=== PATIENT | female | born 1970 | race Caucasian/White ===

== ENCOUNTER 2016-03-13 13:41 | Emergency (ER) | payer OTHER ==
[2016-03-13 14:57] VITALS: BP 122/84
--- NOTE | 2016-03-13 15:21 | UC ---
Respiratory Complaint HPI - HPI Summary HPI Summary: Here on 03/06 for cough. Had just finished course of Z-pack for cough, didn't help. Also had complaint of sores on face, concerned about MRSA. She was treated with Bactrim DS and Bactroban. Wound culture was negative. States the cough is still severe, wheezing from time to time, coughs all night, bring up yellow phlegm. Heavy smoker in past, now down to 3 a day. Also says facial rash is still there, though improved on the treatment. Also has this itchy, scabby rash on legs. 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 She states fevers at home to 102/103, said same thing last visit though temps were normal here. Also wants "urine checked", has inc frequency - History of Current Complaint Chief Complaint: UCGeneralIllness Stated Complaint: RESPIRATORY COMPLAINT Time Seen by Provider: 03/13/16 14:58 Hx Obtained From: Patient Hx Last Menstrual Period: irregular ?: No Onset/Duration: Gradual Onset, Lasting Weeks - 2.5 Timing: Constant Severity Initially: Mild Severity Currently: Moderate Character: Sputum Description: - yellow/green Aggravating Factors: Recumbent Position Alleviating Factors: Bronchodilator Associated Signs And Symptoms: Positive: Dyspnea - off and on with wheezing, Chills, Wheezing, URI, Nasal Congestion, Hoarseness, Sinus Discomfort. Negative : Hemoptysis, Dizziness - Risk Factors Pulmonary Embolism Risk Factors: Smoking Cardiac Risk Factors: Smoking Pseudomonas Risk Factors: Negative Tuberculosis Risk Factors: Smoking - Allergies/Home Medications Allergies/Adverse Reactions: Allergies Allergy/AdvReac Type Severity Reaction Status Date / Time Morphine and Related Allergy Severe hives, Verified 03/13/16 14:45 heart races Hydrocodone Allergy Intermediate Hives Verified 03/13/16 14:45 Propoxyphene [From Darvon] Allergy Intermediate hives, Verified 03/13/16 14:45 heart races Acetaminophen [From Tylenol] Allergy AFFECTS Verified 03/13/16 14:45 THE LIVER Bupropion [From Wellbutrin] Allergy heart Verified 03/13/16 14:45 races, vomiting Oxycodone [From Percocet] Allergy AFFECTS Verified 03/13/16 14:45 THE LIVER ENVIRONMENTAL/HAYFEVER Allergy SNEEZE, Uncoded 03/13/16 14:45 RUNNY NOSE, ITCHY EYES oral contraceptive AdvReac Intermediate Vomiting Uncoded 03/13/16 14:45 PMH/Surg Hx/FS Hx/Imm Hx Endocrine History Of: Denies: Diabetes, Thyroid Disease Cardiovascular History Of: Reports: Cardiac Disorders - [place] 04/06/11 Denies: Hypertension - HYPOTENSIVE HX, Pacemaker/ICD Respiratory History Of: Reports: Asthma - RESCUE INHALER Denies: COPD GI/ History Of: Denies: Ulcer Neurological History Of: Reports: Seizures - 3-4 YEARS AGO - UNKNOWN TYPE, Migraine - 2-3 TIMES PER WEEK Psychological History Of: Reports: Anxiety, Depression - Surgical History Surgical History: Yes Surgery Procedure, Year, and Place: [place] [facility] [place] ADENOIDECTOMY,. B[place], [place] [facility] [place] surgeries RODS IN LEGS AND ANKLES REMOVED,. BONE IMPLANT LEFT LEG, [place]. NOSE SURGERY,. LEFT ANKLE SURGERY X 2,. BILATER[place] [facility] [place] LEFT WRIST CARPAL TUNNEL [place]LEASE[place] [facility] [place] R carpal tunnel- 2015 - Family History Known Family History: Positive: Respiratory Disease - pneumonia in her son - Social History Occupation: Employed Part-time Alcohol Use: None Substance Use Type: Prescribed Smoking Status (MU): Heavy Every Day Tobacco Smoker Type: Cigarettes Amount Used/How Often: 1/2 PPD FOR 30+ YEARS Length of Time of Smoking/Using Tobacco: 33 Years Have You Smoked in the Last Year: Yes Household Exposure Type: Cigarettes - Immunization History Most Recent Influenza Vaccination: Not the Season Review of Systems Constitutional: Negative Skin: Rash - facial and leg Eyes: Negative ENT: Nasal Discharge, Other - sinus pressure Respiratory: Shortness Of Breath Cardiovascular: Negative Gastrointestinal: Negative Genitourinary: Frequency, Urgency Motor: Negative Neurovascular: Negative Musculoskeletal: Myalgia Neurological: Headache Psychological: Negative All Other Systems Reviewed And Are Negative: Yes Physical Exam Triage Information Reviewed: Yes Appearance: Well-Appearing, No Pain Distress, Well-Nourished, Thin Vital Signs: Initial Vital Signs Temp 99.8 F 03/13/16 14:49 Pulse 78 03/13/16 14:49 Resp 20 03/13/16 14:49 BP 122/84 03/13/16 14:49 Pulse Ox 98 03/13/16 14:49 Vital Signs Reviewed: Yes Eye Exam: Normal Eyes: Positive: Conjunctiva Clear ENT: Positive: Hearing grossly normal, Pharynx normal, TMs normal, Muffled/ hoarse voice - hoarse, consistent with heavy smoking. Negative: Tonsillar swelling, Tonsillar exudate, Trismus Neck exam: Normal Neck: Positive: Supple Respiratory: Positive: Lungs clear, Normal breath sounds, No respiratory distress, No accessory muscle use - lungs CTA; harsh, dry, wheezy cough with deep breaths Cardiovascular Exam: Normal Musculoskeletal Exam: Normal Neurological Exam: Normal Neurological: Positive: Alert, Muscle Tone Normal Psychological Exam: Normal Skin: Positive: rashes - rash on face and legs, just appears like excoriated scabs UC Diagnostic Evaluation - Laboratory O2 Sat by Pulse Oximetry: 98 Diagnostic Studies Comment: U/A unremarkable. CXR no pneumonia Respiratory Course/Dx - Differential Dx/Diagnosis Differential Diagnosis/HQI/PQRI: Asthma, Bronchitis, Lower Resp Infection, SARS Provider Diagnoses: URI Discharge - Discharge Plan Condition: Stable Disposition: HOME Prescriptions: Loratadine [Claritin] 10 mg PO DAILY PRN #30 cap PRN Reason: congestion, allergies predniSONE TAB* [Deltasone TAB*] 40 mg PO DAILY #10 tab Patient Education Materials: Upper Respiratory Infection (ED) Forms: *Work Release Referrals: Sumanth Herr MD [Primary Care Provider] -
--- NOTE | 2016-03-13 15:47 | RAD ---
INDICATION: Fever and cough. COMPARISON: Comparison is made with a prior study from March 14 2010. TECHNIQUE: Dual-energy PA and lateral views of the chest were obtained. FINDINGS: The heart is within normal limits in size. Mediastinal and hilar contours appear within normal limits. The lungs are clear. No pleural effusion is present. IMPRESSION: NO EVIDENCE FOR ACTIVE CARDIOPULMONARY DISEASE.
== END 2016-03-13 15:56 | disposition home or self-care (01) ==
LOC: UCCORT 13:41
DX: J06.9 Acute upper respiratory infection, unspecified (principal); Z88.6 Allergy status to analgesic agent; Z88.5 Allergy status to narcotic agent; Z88.8 Allergy status to other drugs, medicaments and biological substances; I25.2 Old myocardial infarction; Z95.810 Presence of automatic (implantable) cardiac defibrillator; J45.909 Unspecified asthma, uncomplicated; F17.210 Nicotine dependence, cigarettes, uncomplicated
CPT/HCPCS: 71020; 99212; G0463

== ENCOUNTER 2016-03-18 13:21 | Emergency (ER) | payer OTHER ==
[2016-03-18 13:35] VITALS: BP 123/65
--- NOTE | 2016-03-18 13:50 | UC ---
Respiratory Complaint HPI - HPI Summary HPI Summary: cough, chest congestion x 2 weeks is on Bactrim ds and prednisone , no getting better, diarrhea x 2 days no fever, no chills, no sob - History of Current Complaint Chief Complaint: UCRespiratory Stated Complaint: RE CK UPPER RESPIRATORY Time Seen by Provider: 03/18/16 13:23 Hx Obtained From: Patient Hx Last Menstrual Period: irregular ?: No Onset/Duration: Gradual Onset, Lasting Weeks - 2, Still Present Severity Initially: Moderate Severity Currently: Moderate Character: Cough: Nonproductive Aggravating Factors: Exertion, Deep Breaths Alleviating Factors: Nothing Associated Signs And Symptoms: Positive: Wheezing, URI, Nasal Congestion. Negative: Dyspnea, Fever, Chills, Calf Pain, Calf Swelling - Allergies/Home Medications Allergies/Adverse Reactions: Allergies Allergy/AdvReac Type Severity Reaction Status Date / Time Morphine and Related Allergy Severe hives, Verified 03/18/16 13:28 heart races Hydrocodone Allergy Intermediate Hives Verified 03/18/16 13:28 Propoxyphene [From Darvon] Allergy Intermediate hives, Verified 03/18/16 13:28 heart races Acetaminophen [From Tylenol] Allergy AFFECTS Verified 03/18/16 13:28 THE LIVER Bupropion [From Wellbutrin] Allergy heart Verified 03/18/16 13:28 races, vomiting Oxycodone [From Percocet] Allergy AFFECTS Verified 03/18/16 13:28 THE LIVER ENVIRONMENTAL/HAYFEVER Allergy SNEEZE, Uncoded 03/18/16 13:28 RUNNY NOSE, ITCHY EYES oral contraceptive AdvReac Intermediate Vomiting Uncoded 03/18/16 13:28 PMH/Surg Hx/FS Hx/Imm Hx Endocrine History Of: Denies: Diabetes, Thyroid Disease Cardiovascular History Of: Reports: Cardiac Disorders - [place] 04/06/11 Denies: Hypertension - HYPOTENSIVE HX, Pacemaker/ICD Respiratory History Of: Reports: Asthma - RESCUE INHALER Denies: COPD GI/ History Of: Denies: Ulcer Neurological History Of: Reports: Seizures - 3-4 YEARS AGO - UNKNOWN TYPE, Migraine - 2-3 TIMES PER WEEK Psychological History Of: Reports: Anxiety, Depression - Surgical History Surgical History: Yes Surgery Procedure, Year, and Place: BILATERAL Ovarian Cystectomy, 1995; [facility] [place] TONSILLECTOMY AND ADENOIDECTOMY,. BILATERAL Fallopian Tubectomy, 1992; [facility] [place]. 12 orthopedic leg surgeries RODS IN LEGS AND ANKLES REMOVED,. BONE IMPLANT LEFT LEG, [place]. NOSE SURGERY,. LEFT ANKLE SURGERY X 2,. BILATERAL KNEE SCOPINGS, [facility] [place]. 2006 LEFT WRIST CARPAL TUNNEL RELEASE, [facility]. R carpal tunnel- 2015 - Family History Known Family History: Positive: Respiratory Disease - pneumonia in her son - Social History Alcohol Use: None Substance Use Type: Prescribed Smoking Status (MU): Heavy Every Day Tobacco Smoker Type: Cigarettes Amount Used/How Often: 1/2 PPD FOR 30+ YEARS Length of Time of Smoking/Using Tobacco: 33 Years Have You Smoked in the Last Year: Yes Household Exposure Type: Cigarettes - Immunization History Most Recent Influenza Vaccination: Not the Season Review of Systems Constitutional: Negative Skin: Negative Eyes: Negative ENT: Nasal Discharge Respiratory: Cough Cardiovascular: Negative Gastrointestinal: Negative Genitourinary: Negative All Other Systems Reviewed And Are Negative: Yes Physical Exam Triage Information Reviewed: Yes Appearance: Well-Appearing, No Pain Distress, Well-Nourished Vital Signs: Initial Vital Signs Temp 96.6 F 03/18/16 13:30 Pulse 83 03/18/16 13:30 Resp 20 03/18/16 13:30 BP 123/65 03/18/16 13:30 Pulse Ox 98 03/18/16 13:30 Vital Signs Reviewed: Yes Eyes: Positive: Conjunctiva Clear ENT: Positive: Normal ENT inspection, Hearing grossly normal, Pharynx normal, Nasal congestion, Nasal drainage, TMs normal Neck: Positive: Supple, Nontender, No Lymphadenopathy Respiratory: Positive: Chest non-tender, Lungs clear, Normal breath sounds Cardiovascular: Positive: RRR, No Murmur, Pulses Normal Skin Exam: Normal Diagnostic Evaluation - Laboratory O2 Sat by Pulse Oximetry: 98 Respiratory Course/Dx - Differential Dx/Diagnosis Provider Diagnoses: BRONCHITIS Discharge - Discharge Plan Condition: Stable Disposition: HOME Prescriptions: Benzonatate CAP* [Tessalon CAP*] 100 mg PO TID PRN #21 cap PRN Reason: Cough Patient Education Materials: Acute Bronchitis (ED) Forms: *Work Release Referrals: Sumanth Herr MD [Primary Care Provider] - 7 Days Additional Instructions: viral illness stop Bactrim
== END 2016-03-18 14:06 | disposition home or self-care (01) ==
LOC: UCCORT 13:21
DX: J40 Bronchitis, not specified as acute or chronic (principal); I25.2 Old myocardial infarction; Z88.6 Allergy status to analgesic agent; F17.210 Nicotine dependence, cigarettes, uncomplicated
CPT/HCPCS: 99212; G0463

== ENCOUNTER 2016-05-15 15:11 | Emergency (ER) | payer OTHER ==
--- NOTE | 2016-05-15 16:14 | UC ---
UC General HPI - HPI Summary HPI Summary: complaint of frequent MRSA infections approx 2-3 days ago she started to have a rash on he rface rash feels like it is burning using bactroban cream but ran out denies fever and chills was moving a dryer and it slipped and hit her in the face right side of check is constant aching pain radiates into eye socket- denies vision changes has a headache hx of fx right orbit in the past hasn't taken any medication for pain - History of Current Complaint Chief Complaint: UCSkin Stated Complaint: FACIAL PAIN Time Seen by Provider: 05/15/16 16:06 Hx Obtained From: Patient - Allergy/Home Medications Allergies/Adverse Reactions: Allergies Allergy/AdvReac Type Severity Reaction Status Date / Time Morphine and Related Allergy Severe hives, Verified 05/15/16 15:32 heart races Hydrocodone Allergy Intermediate Hives Verified 05/15/16 15:32 Propoxyphene [From Darvon] Allergy Intermediate hives, Verified 05/15/16 15:32 heart races Acetaminophen [From Tylenol] Allergy AFFECTS Verified 05/15/16 15:32 THE LIVER Bupropion [From Wellbutrin] Allergy heart Verified 05/15/16 15:32 races, vomiting Oxycodone [From Percocet] Allergy AFFECTS Verified 05/15/16 15:32 THE LIVER ENVIRONMENTAL/HAYFEVER Allergy SNEEZE, Uncoded 05/15/16 15:32 RUNNY NOSE, ITCHY EYES oral contraceptive AdvReac Intermediate Vomiting Uncoded 05/15/16 15:32 PMH/Surg Hx/FS Hx/Imm Hx Previously Healthy: No - rash Endocrine History Of: Denies: Diabetes, Thyroid Disease Cardiovascular History Of: Reports: Cardiac Disorders - [place] 04/06/11 Denies: Pacemaker/ICD Comment Only: Hypertension - HYPOTENSIVE HX Respiratory History Of: Reports: Asthma - RESCUE INHALER Denies: COPD GI/ History Of: Denies: Ulcer Neurological History Of: Reports: Seizures - 3-4 YEARS AGO - UNKNOWN TYPE, Migraine - 2-3 TIMES PER WEEK Psychological History Of: Reports: Anxiety, Depression - Surgical History Surgical History: Yes Surgery Procedure, Year, and Place: BILATERAL Ovarian Cystectomy, 1995; [facility] [place]. TONSILLECTOMY AND ADENOIDECTOMY,. BILATERAL Fallopian Tubectomy, 1992; [facility] [place]. 12 orthopedic leg surgeries RODS IN LEGS AND ANKLES REMOVED,. BONE IMPLANT LEFT LEG, [place]. NOSE SURGERY,. LEFT ANKLE SURGERY X 2,. BILATERAL KNEE SCOPINGS, [facility]. 2006 LEFT WRIST CARPAL TUNNEL RELEASE, [facility]. R carpal tunnel- 2015 - Family History Known Family History: Positive: Respiratory Disease - pneumonia in her son Negative: Cardiac Disease, Hypertension - Social History Occupation: Employed Full-time Lives: With Family Alcohol Use: None Substance Use Type: None Smoking Status (MU): Heavy Every Day Tobacco Smoker Type: Cigarettes Amount Used/How Often: 1/2 PPD FOR 30+ YEARS Length of Time of Smoking/Using Tobacco: 33 Years Have You Smoked in the Last Year: Yes Household Exposure Type: Cigarettes - Immunization History Most Recent Influenza Vaccination: 2016 Most Recent Tetanus Shot: Unk Most Recent Pneumonia Vaccination: None Review of Systems Constitutional: Negative Skin: Rash Eyes: Negative ENT: Other - right cheek pain Respiratory: Negative Cardiovascular: Negative Gastrointestinal: Negative Genitourinary: Negative Motor: Negative Neurovascular: Negative Musculoskeletal: Negative Neurological: Negative Psychological: Negative All Other Systems Reviewed And Are Negative: Yes Physical Exam Triage Information Reviewed: Yes Appearance: No Pain Distress, Ill-Appearing, Thin Vital Signs: Initial Vital Signs Temp 99.5 F 05/15/16 15:36 Pulse 114 05/15/16 15:36 Resp 18 05/15/16 15:36 BP 132/73 05/15/16 15:36 Pulse Ox 100 05/15/16 15:36 Vital Signs Reviewed: Yes Eyes: Positive: Conjunctiva Clear ENT Exam: Other - right zygomatic tenderness-edema ecchymosis ENT: Positive: Pharynx normal, TMs normal. Negative: Nasal congestion Dental: Positive: Cervical Lymphadenopathy Respiratory: Positive: Lungs clear, Normal breath sounds, No respiratory distress Cardiovascular: Positive: No Murmur, Pulses Normal, Tachycardia Abdomen Description: Positive: Nontender, Soft Bowel Sounds: Positive: Present Musculoskeletal: Positive: No Edema Neurological: Positive: Alert Psychological Exam: Normal Skin: Positive: rashes - across entire face ulcerations with no purulent drainage Course/Dx - Course Course Of Treatment: exam completed. pt HR is tachycardic but she is afebrile - will increase fluids. will treat with oral agent- up to date suggests clindamycin as last treatment was Bactrim - Differential Dx - Multi-Symptom Differential Diagnoses: Other - MRSA rash, facial pain Provider Diagnoses: facila contusion, rash Discharge - Discharge Plan Condition: Stable Disposition: HOME Prescriptions: Clindamycin Cap(NF) [Cleocin 300 mg Cap(NF)] 300 mg PO Q6H #40 cap Mupirocin 2% CREAM* [Bactroban 2% CREAM*] 1 applic TOPICAL TID #1 tube Patient Education Materials: Mupirocin (On the skin) Referrals: Sumatnh Herr MD [Primary Care Provider] - Additional Instructions: Start antibioticc as directed Increase fluids and rest Take acetaminophen or ibuprofen for fever or pain Please review your discharge instructions. If your symptoms do not improve please call your primary care provider or return to urgent care
[2016-05-15] MEDS ORDERED: Ibuprofen TAB* 400 MG PO ONE (16:19)
[2016-05-15 17:09] VITALS: BP 110/77
--- NOTE | 2016-05-15 17:11 | RAD ---
INDICATION: Facial bone injury COMPARISON: none. TECHNIQUE: 4 views of facial bones were obtained FINDINGS: There is no plain radiographic evidence of a facial bone fracture. The sinuses per well aerated. No soft tissue adenitis are apparent IMPRESSION: NO PLAIN RADIOGRAPHIC EVIDENCE OF FACIAL BONE FRACTURE.
== END 2016-05-15 17:08 | disposition home or self-care (01) ==
LOC: UCCORT 15:11
DX: S00.83XA Contusion of other part of head, initial encounter (principal); W31.89XA Contact with other specified machinery, initial encounter; Y93.89 Activity, other specified; Y92.9 Unspecified place or not applicable; R21 Rash and other nonspecific skin eruption; Z86.14 Personal history of Methicillin resistant Staphylococcus aureus infection; Z88.6 Allergy status to analgesic agent; Z88.5 Allergy status to narcotic agent; Z88.8 Allergy status to other drugs, medicaments and biological substances; I25.2 Old myocardial infarction; F17.210 Nicotine dependence, cigarettes, uncomplicated
CPT/HCPCS: 70150; 99212; A9270-GY; G0463

== ENCOUNTER 2016-09-14 16:22 | Emergency (ER) | payer OTHER ==
[2016-09-14 17:06] VITALS: BP 96/72
--- NOTE | 2016-09-14 17:55 | UC ---
Skin Complaint HPI - History of Current Complaint Chief Complaint: UCSkin Time Seen by Provider: 09/14/16 17:36 Stated Complaint: SKIN COMPLAINT Hx Obtained From: Patient Hx Last Menstrual Period: irregular ?: No Onset/Duration: Sudden Onset - since thursday, itchy spots that scab/ ulcer with scratching., Lasting Days - 2, Worse Since - onset Location: Diffuse - face predominantly, arms and legs Character: Pruritus, Pain, Redness Aggravating: Touch Alleviating: Nothing Associated Signs & Symptoms: Positive: Diaphoresis - on thursday with subjective fever., Chills, Rash Related History: Recent change in medication - added lamictal. - Allergy/Home Medications Allergies/Adverse Reactions: Allergies Allergy/AdvReac Type Severity Reaction Status Date / Time Morphine and Related Allergy Severe hives, Verified 09/14/16 17:06 heart races Hydrocodone Allergy Intermediate Hives Verified 09/14/16 17:06 Propoxyphene [From Darvon] Allergy Intermediate hives, Verified 09/14/16 17:06 heart races Acetaminophen [From Tylenol] Allergy AFFECTS Verified 09/14/16 17:06 THE LIVER Bupropion [From Wellbutrin] Allergy heart Verified 09/14/16 17:06 races, vomiting Oxycodone [From Percocet] Allergy AFFECTS Verified 09/14/16 17:06 THE LIVER ENVIRONMENTAL/HAYFEVER Allergy SNEEZE, Uncoded 09/14/16 17:06 RUNNY NOSE, ITCHY EYES oral contraceptive AdvReac Intermediate Vomiting Uncoded 09/14/16 17:06 Home Medications: Home Medications Gabapentin CAP(*) [Neurontin 300 CAP(*)] 600 mg PO TID 09/14/16 [History Confirmed 09/14/16] Review of Systems Constitutional: Chills Skin: Rash All Other Systems Reviewed And Are Negative: Yes PMH/Surg Hx/FS Hx/Imm Hx Neurological History: Seizures Psychological History: Bipolar Disorder - Surgical History Surgical History: Yes Surgery Procedure, Year, and Place: BILATERAL Ovarian Cystectomy, 1995; [facility] [place]. TONSILLECTOMY AND ADENOIDECTOMY,. BILATERAL Fallopian Tubectomy, 1992; [facility] [place]. 12 orthopedic leg surgeries RODS IN LEGS AND ANKLES REMOVED,. BONE IMPLANT LEFT LEG, [place]. NOSE SURGERY,. LEFT ANKLE SURGERY X 2,. BILATERAL KNEE SCOPINGS, [facility] [place]. 2006 LEFT WRIST CARPAL TUNNEL RELEASE, [facility]. R carpal tunnel- 2015 - Family History Known Family History: Positive: Cardiac Disease, Diabetes, Respiratory Disease - pneumonia in her son Negative: Hypertension - Social History Occupation: Unemployed Lives: With Family Alcohol Use: None Substance Use Type: None Smoking Status (MU): Heavy Every Day Tobacco Smoker Type: Cigarettes Amount Used/How Often: 1/2 PPD FOR 30+ YEARS Length of Time of Smoking/Using Tobacco: 33 Years Have You Smoked in the Last Year: Yes Household Exposure Type: Cigarettes Cessation Counseling: Patient Advised to Stop - Immunization History Most Recent Influenza Vaccination: 2016 Most Recent Tetanus Shot: Unk Most Recent Pneumonia Vaccination: None Physical Exam Triage Information Reviewed: Yes Appearance: Well-Appearing, No Pain Distress, Well-Nourished Vital Signs: Initial Vital Signs Temp 98.3 F 09/14/16 16:59 Pulse 87 09/14/16 16:59 Resp 18 09/14/16 16:59 BP 96/72 09/14/16 16:59 Vital Signs Reviewed: Yes ENT: Positive: Pharynx normal, TMs normal Neck exam: Normal Respiratory Exam: Normal Cardiovascular Exam: Normal Musculoskeletal Exam: Normal Neurological Exam: Normal Psychological Exam: Normal Skin: Positive: rashes - scabbing ulcerated rash over face and new papules/ vescicles on the arms/ legs/ abdomen and upper back. Course/Dx - Differential Diagnoses - Skin Complaint Differential Diagnoses: Allergic Reaction, Cellulitis, Drug Rash, Sheikh- Raul Syndrome - Diagnoses Provider Diagnoses: Drug rash, allergy to lamictal. Staph cellulitis superinfection. Discharge - Discharge Plan Condition: Stable Disposition: HOME Prescriptions: Sulfamethox/Trimethoprim DS* [Bactrim DS 800/160 TAB*] 1 tab PO BID #14 tab predniSONE TAB* [Deltasone TAB*] 10 mg PO DAILY #18 tab Patient Education Materials: General Allergic Reaction (ED), Cellulitis (ED), Sulfamethoxazole/Trimethoprim (By mouth), Prednisone (By mouth) Referrals: Sumanth Herr MD [Primary Care Provider] - 1 Day (call about the lamictal replacement.)
[2016-09-14] MEDS ORDERED: Sulfamethox/Trimethoprim DS 800/160* TAB PO ONE (18:06)
[2016-09-14] MEDS ORDERED: predniSONE TAB* 10 MG PO ONE (18:06)
== END 2016-09-14 18:20 | disposition home or self-care (01) ==
LOC: UCCORT 16:22
DX: L27.0 Generalized skin eruption due to drugs and medicaments taken internally (principal); T42.6X5A Adverse effect of other antiepileptic and sedative-hypnotic drugs, initial encounter; Y92.9 Unspecified place or not applicable; L03.90 Cellulitis, unspecified; B95.8 Unspecified staphylococcus as the cause of diseases classified elsewhere; R56.9 Unspecified convulsions; F31.9 Bipolar disorder, unspecified; Z88.5 Allergy status to narcotic agent; Z88.6 Allergy status to analgesic agent; Z88.8 Allergy status to other drugs, medicaments and biological substances; F17.210 Nicotine dependence, cigarettes, uncomplicated
CPT/HCPCS: 99212; A9270-GY; G0463; J7512

== ENCOUNTER 2019-06-28 14:12 | Emergency (ER) | payer MEDICAID, OTHER ==
[2019-06-28 14:33] VITALS: BP 109/68
[2019-06-28] MEDS ORDERED: Ondansetron ODT TAB* 4 MG PO ONE (14:56)
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
== END 2019-06-28 15:06 | disposition home or self-care (01) ==
LOC: UCCORT 14:12
DX: S29.012A Strain of muscle and tendon of back wall of thorax, initial encounter (principal); X50.0XXA Overexertion from strenuous movement or load, initial encounter; Y93.89 Activity, other specified; Y92.9 Unspecified place or not applicable; K52.9 Noninfective gastroenteritis and colitis, unspecified; Z88.5 Allergy status to narcotic agent; Z88.8 Allergy status to other drugs, medicaments and biological substances; F17.210 Nicotine dependence, cigarettes, uncomplicated
CPT/HCPCS: 99212; A9270-GY; G0463